=== PATIENT | female | born 1995 | race Two or more races ===

== ENCOUNTER 2017-05-20 21:32 | Emergency (ER) | payer MEDICAID ==
[~2017-05-20] VITALS: Ht 172.7 cm; Wt 90.7 kg
[~2017-05-20 21:32] MED LIST: SULF400T11 PO
[2017-05-20 21:42] VITALS: BP 123/83
== END 2017-05-21 00:16 | disposition left against medical advice (07) ==
LOC: ER 21:32
DX: R11.2 Nausea with vomiting, unspecified (principal); Z53.21 Procedure and treatment not carried out due to patient leaving prior to being seen by health care provider

== ENCOUNTER 2017-11-02 18:58 | Emergency (ER) | payer MEDICAID ==
[~2017-11-02] VITALS: Ht 172.7 cm; Wt 90.7 kg
[2017-11-02 20:13] LABS: Basophils # (auto) 0.1 uL; Hemoglobin 12.7 g/dL (12.2-16.2); Lymphocytes # (auto) 3.4 uL; Monocytes # (auto) 0.5 uL; Monocytes % (auto) 4.1 % (0.0-12.0)
[2017-11-02 20:14] LABS: Basophils % (auto) 0.7 % (0.0-2.0); Eosinophils # (auto) 0.2 uL; Eosinophils % (auto) 1.3 % (0.0-7.0); Hematocrit 38.7 % (36.0-46.0); Lymphocytes % (auto) 26.4 % (10.0-50.0); Mean Corpuscular Hgb Conc. 32.8 g/dL (32.0-36.0); Mean Corpuscular Volume 79.3 fL (80.0-100.0); Neutrophils # (auto) 8.7 uL; Neutrophils % (auto) 67.5 % (37.0-80.0); Platelet Count (auto) 309 10^3/uL (140-450); Red Blood Cells 4.88 10^6/uL (4.0-5.20); Red Cell Distribution Width 14.7 % (11.8-14.3); White Blood Cell 12.9 10^3/uL (4.4-10.8)
[2017-11-02 20:31] LABS: Albumin 3.7 g/dL (3.4-5.0); BUN/Creatinine Ratio 25.8; Calcium 9.1 mg/dL (8.5-10.1); Potassium 3.7 mmol/L (3.5-5.1)
[2017-11-02 20:34] LABS: Bilirubin, Total 0.2 mg/dL (0.2-1.0); Total Protein 8.4 g/dL (6.4-8.2)
[2017-11-02 21:28] VITALS: BP 141/93
[2017-11-02 22:11] LABS: Urine Bacteria NONE SEEN /hpf (None Seen); Urine Blood Negative /uL (Negative); Urine Mucus FEW (None Seen); Urine Specific Gravity 1.033 (1.001-1.035); Urine WBC 1 /hpf (0 - 5)
== END 2017-11-02 23:51 | disposition home or self-care (01) ==
LOC: ER 18:58
DX: M62.838 Other muscle spasm (principal); Z79.899 Other long term (current) drug therapy
CPT/HCPCS: 36415; 80053; 81001; 81025; 82962; 84702; 85025

== ENCOUNTER 2018-01-31 01:10 | Emergency (ER) | payer MEDICAID ==
[~2018-01-31] VITALS: Ht 172.7 cm; Wt 90.7 kg
[2018-01-31 01:15] VITALS: BP 115/75
== END 2018-01-31 05:42 | disposition left against medical advice (07) ==
LOC: ER 01:11
DX: R11.2 Nausea with vomiting, unspecified (principal); Z53.21 Procedure and treatment not carried out due to patient leaving prior to being seen by health care provider

== ENCOUNTER 2018-04-05 18:30 | Emergency (ER) | payer SELFPAY ==
[~2018-04-05] VITALS: Ht 172.7 cm; Wt 104.3 kg
[2018-04-05 19:49] LABS: Basophils # (auto) 0 uL; Basophils % (auto) 0.1 % (0.0-2.0); Eosinophils # (auto) 0.1 uL; Eosinophils % (auto) 0.8 % (0.0-7.0); Hemoglobin 12.2 g/dL (12.2-16.2); Lymphocytes # (auto) 2.4 uL; Mean Corpuscular Hemoglobin 27.3 pg (28.0-32.0); Mean Corpuscular Hgb Conc. 33.1 g/dL (32.0-36.0); Mean Corpuscular Volume 82.6 fL (80.0-100.0); Monocytes # (auto) 0.7 uL; Monocytes % (auto) 4.5 % (0.0-12.0); Neutrophils # (auto) 11.6 uL; Neutrophils % (auto) 78.6 % (37.0-80.0); Nucleated Red Blood Cells % 0.1 %; Platelet Count (auto) 281 10^3/uL (140-450); Red Blood Cells 4.48 10^6/uL (4.0-5.20); Red Cell Distribution Width 14.4 % (11.8-14.3); White Blood Cell 14.8 10^3/uL (4.4-10.8)
[2018-04-05 20:42] LABS: Urine Bacteria FEW /hpf (None Seen); Urine Blood Negative /uL (Negative); Urine Mucus FEW (None Seen); Urine Specific Gravity 1.024 (1.001-1.035); Urine WBC 1 /hpf (0 - 5)
[2018-04-05] MEDS ORDERED: SODIUM CHLORIDE 0.9% 1,000 ML IVB ONE (21:58)
[2018-04-05] MEDS ORDERED: PROMETHAZINE HCL 25 MG/ML 1ML IV ONE (22:00)
[2018-04-05] MEDS ORDERED: SODIUM CHLORIDE 0.9% 3,150 ML IV ONE (22:00)
[2018-04-05 22:26] LABS: Basophils # (auto) 0 uL; Basophils % (auto) 0.3 % (0.0-2.0); Eosinophils # (auto) 0.2 uL; Eosinophils % (auto) 1.1 % (0.0-7.0); Hematocrit 37.2 % (36.0-46.0); Hemoglobin 12.4 g/dL (12.2-16.2); Lymphocytes # (auto) 2.6 uL; Lymphocytes % (auto) 18.5 % (10.0-50.0); Mean Corpuscular Hemoglobin 27.5 pg (28.0-32.0); Mean Corpuscular Hgb Conc. 33.4 g/dL (32.0-36.0); Mean Corpuscular Volume 82.4 fL (80.0-100.0); Monocytes # (auto) 0.6 uL; Monocytes % (auto) 4.4 % (0.0-12.0); Neutrophils # (auto) 10.9 uL; Neutrophils % (auto) 75.7 % (37.0-80.0); Platelet Count (auto) 279 10^3/uL (140-450); Red Blood Cells 4.52 10^6/uL (4.0-5.20); Red Cell Distribution Width 14.3 % (11.8-14.3); White Blood Cell 14.4 10^3/uL (4.4-10.8)
[2018-04-05] MEDS ORDERED: SODIUM CHLORIDE 0.9% 1,000 ML IV ONE (22:30)
[2018-04-05 22:41] LABS: Albumin 3.2 g/dL (3.4-5.0); BUN/Creatinine Ratio 12.8; Potassium 3.6 mmol/L (3.5-5.1)
[2018-04-05 22:44] LABS: Bilirubin, Total 0.3 mg/dL (0.2-1.0); Total Protein 7.8 g/dL (6.4-8.2)
[2018-04-06 00:05] VITALS: BP 121/64
== END 2018-04-06 00:14 | disposition home or self-care (01) ==
LOC: ER 18:36
DX: O20.0 Threatened abortion (principal); Z3A.19 19 weeks gestation of pregnancy
CPT/HCPCS: 36415; 76805; 80053; 81001; 82150; 83690; 84702; 85025; 96361; 96374; 99285; J2550; J7030

== ENCOUNTER 2018-05-21 18:56 | Observation (INO) | payer MEDICAID | END 2018-05-21 20:00 | disposition home or self-care (01) | DRG 566 | LOC: LDRP 18:56 | PROVIDERS: ADMIT Specialist; ATTEND Specialist | DX: O21.2 Late vomiting of pregnancy (principal); Z3A.25 25 weeks gestation of pregnancy | CPT/HCPCS: 59025; 81002; G0378 ==

== ENCOUNTER 2018-05-21 20:06 | Emergency (ER) | payer MEDICAID ==
[~2018-05-21] VITALS: Ht 172.7 cm; Wt 90.7 kg
[2018-05-22] MEDS ORDERED: ONDANSETRON HCL 4 MG/2 ML VIAL IV ONE ×2 (00:30→02:00)
[2018-05-22] MEDS ORDERED: SODIUM CHLORIDE 0.9% 1,000 ML IV ONE (00:30)
[2018-05-22 02:04] VITALS: BP 106/53
== END 2018-05-22 02:44 | disposition home or self-care (01) ==
LOC: ER 20:06
DX: O21.0 Mild hyperemesis gravidarum (principal); Z3A.27 27 weeks gestation of pregnancy
CPT/HCPCS: 96361; 96374; 96376; 99283; J2405; J7030

== ENCOUNTER 2018-06-28 21:46 | Observation (INO) | payer SELFPAY | END 2018-06-28 22:46 | disposition home or self-care (01) | DRG 833 | LOC: TELE 21:46 → LDRP 21:51 | PROVIDERS: ADMIT Obstetrics & Gynecology; ATTEND Obstetrics & Gynecology | DX: O60.03 Preterm labor without delivery, third trimester (principal); Z3A.31 31 weeks gestation of pregnancy | CPT/HCPCS: 59025; 81002; G0378 ==

== ENCOUNTER → 2018-08-01 | Outpatient (CLI) | payer OTHER ==
[~2018-08-01] MED LIST changes: +DOCO200C4 PO; +PREN-96 PO
[2018-08-01 10:52] LABS: Basophils # (auto) 0 uL; Eosinophils # (auto) 0.1 uL; Monocytes # (auto) 0.5 uL; Neutrophils # (auto) 10.1 uL; Neutrophils % (auto) 81.3 % (37.0-80.0)
[2018-08-01 10:56] LABS: Basophils % (auto) 0.2 % (0.0-2.0); Eosinophils % (auto) 0.6 % (0.0-7.0); Hemoglobin 10.3 g/dL (12.2-16.2); Lymphocytes # (auto) 1.7 uL; Lymphocytes % (auto) 13.7 % (10.0-50.0); Mean Corpuscular Hemoglobin 23.4 pg (28.0-32.0); Mean Corpuscular Hgb Conc. 32.2 g/dL (32.0-36.0); Mean Corpuscular Volume 72.6 fL (80.0-100.0); Monocytes % (auto) 4.2 % (0.0-12.0); Nucleated Red Blood Cells % 0.1 %; Platelet Count (auto) 259 10^3/uL (140-450); Red Blood Cells 4.41 10^6/uL (4.0-5.20); Red Cell Distribution Width 16.8 % (11.8-14.3); White Blood Cell 12.4 10^3/uL (4.4-10.8)
== END | disposition home or self-care (01) ==
LOC: LAB 10:29
PROVIDERS: ATTEND Specialist
DX: O23.593 Infection of other part of genital tract in pregnancy, third trimester (principal); Z3A.36 36 weeks gestation of pregnancy
CPT/HCPCS: 36415; 85025; 87081

== ENCOUNTER 2018-08-17 10:43 | Observation (INO) | payer OTHER ==
[~2018-08-17 10:43] MED LIST changes: -DOCO200C4 PO; -PREN-96 PO
== END 2018-08-17 12:30 | disposition home or self-care (01) | DRG 833 ==
LOC: LDRP 10:43
PROVIDERS: ADMIT Specialist; ATTEND Specialist
DX: O36.5930 Maternal care for other known or suspected poor fetal growth, third trimester, not applicable or unspecified (principal); Z3A.38 38 weeks gestation of pregnancy
CPT/HCPCS: 59025; 76818; 81002; G0378

== ENCOUNTER 2018-08-21 14:13 | Observation (INO) | payer OTHER ==
[2018-08-21] MEDS ORDERED: DOCO200C4 PO (14:59)
[2018-08-21] MEDS ORDERED: PREN-96 PO (15:00)
== END 2018-08-21 15:23 | disposition home or self-care (01) | DRG 833 ==
LOC: LDRP 14:13
PROVIDERS: ADMIT Specialist; ATTEND Specialist
DX: O36.5930 Maternal care for other known or suspected poor fetal growth, third trimester, not applicable or unspecified (principal); O62.9 Abnormality of forces of labor, unspecified; Z3A.39 39 weeks gestation of pregnancy
CPT/HCPCS: 59025; 76818; 81002; G0378

== ENCOUNTER 2018-08-24 01:00 | Observation (INO) | payer OTHER ==
[~2018-08-24 01:00] MED LIST changes: +PREN-96 PO; -SULF400T11 PO
== END 2018-08-24 02:45 | disposition home or self-care (01) | DRG 833 ==
LOC: LDRP 01:00
PROVIDERS: ADMIT Specialist; ATTEND Specialist
DX: O36.8130 Decreased fetal movements, third trimester, not applicable or unspecified (principal); Z3A.39 39 weeks gestation of pregnancy
CPT/HCPCS: 59025; 76818; 81002; G0378

== ENCOUNTER 2018-08-28 23:37 | Observation (INO) | payer OTHER | END 2018-08-29 01:40 | disposition home or self-care (01) | DRG 833 | LOC: LDRP 23:37 | PROVIDERS: ADMIT Specialist; ATTEND Specialist | DX: O62.9 Abnormality of forces of labor, unspecified (principal); O48.0 Post-term pregnancy; Z3A.40 40 weeks gestation of pregnancy | CPT/HCPCS: 59025; 81002; G0378 ==

== ENCOUNTER 2018-08-29 08:35 | Inpatient (IN) | payer OTHER | END 2018-09-02 12:25 | disposition home or self-care (01) | LOC: LDRP 08:35 | PROC: 10D00Z1 Extraction of Products of Conception, Low, Open Approach (ICD-10-PCS; principal; 2018-08-30 20:44) | DX: O69.81X0 Labor and delivery complicated by cord around neck, without compression, not applicable or unspecified (principal); O48.0 Post-term pregnancy; Z3A.40 40 weeks gestation of pregnancy; Z37.0 Single live birth; O36.5990 Maternal care for other known or suspected poor fetal growth, unspecified trimester, not applicable or unspecified ==

== ENCOUNTER 2021-07-03 20:04 | Emergency (ER) | payer MEDICAID, OTHER ==
[~2021-07-03] VITALS: Ht 172.7 cm; Wt 99.8 kg
[2021-07-03 20:57] LABS: Urine Bacteria FEW /hpf (None Seen); Urine Blood 2+ /uL (Negative); Urine Mucus FEW (None Seen); Urine WBC 6 /hpf (0 - 5)
[2021-07-04 02:15] LABS: Basophils # (auto) 0.1 10 ^3/uL (0-0.2); Eosinophils # (auto) 0.1 10 ^3/uL (0-0.8); Lymphocytes # (auto) 2.8 10 ^3/uL (0.4-5.4); Monocytes # (auto) 0.5 10 ^3/uL (0-1.3); Monocytes % (auto) 4.7 % (0.0-12.0); White Blood Cell 10.7 10^3/uL (4.4-10.8)
[2021-07-04 02:17] LABS: Basophils % (auto) 0.7 % (0.0-2.0); Eosinophils % (auto) 1.1 % (0.0-7.0); Hematocrit 36.1 % (36.0-46.0); Hemoglobin 11.8 g/dL (12.2-16.2); Mean Corpuscular Hemoglobin 24.8 pg (28.0-32.0); Mean Corpuscular Hgb Conc. 32.8 g/dL (32.0-36.0); Mean Corpuscular Volume 75.7 fL (80.0-100.0); Neutrophils # (auto) 7.2 10 ^3/uL (1.6-8.6); Neutrophils % (auto) 67.5 % (37.0-80.0); Red Blood Cells 4.76 10^6/uL (4.0-5.20); Red Cell Distribution Width 15.8 % (11.8-14.3)
[2021-07-04 03:08] LABS: Albumin 4.1 g/dL (3.4-5.0); Potassium 3.3 mmol/L (3.5-5.1)
[2021-07-04 03:14] LABS: BUN/Creatinine Ratio 32.7; Bilirubin, Total 0.6 mg/dL (0.2-1.0); Total Protein 8.1 g/dL (6.4-8.2)
[2021-07-04 04:36] VITALS: BP 124/79
== END 2021-07-04 04:36 | disposition home or self-care (01) ==
LOC: ER 20:08
DX: R07.89 Other chest pain (principal); Z90.49 Acquired absence of other specified parts of digestive tract
CPT/HCPCS: 36415; 71045; 80053; 81001; 83690; 84484; 84702; 85025; 93005